=== PATIENT | male | born 1995 | race Caucasian/White ===

== ENCOUNTER 2018-04-09 20:11 | Inpatient (IN) | payer BC ==
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
[2018-04-09 22:08] LABS: #Basophils 0.1 thou/uL (0.0-0.2); #Eosinphils 0.1 thou/uL (0.0-0.7); #Lymphocytes 1.6 thou/uL (1.20-3.40); #Monocytes 0.9 thou/uL (0.11-0.59); #Neutrophils 7.5 thou/uL (1.40-6.50); %Basophils 1.1 % (0.0-1.0); %Eosinophils 0.5 % (0.0-10.0); %Lymphocytes 15.3 % (21.0-51.0); %Monocytes 9.3 % (0.0-10.0); %Neutrophils 73.7 % (42.0-75.0); Hemoglobin 14.7 g/dL (14.0-18.0); Mean Corpuscular HGB CONC 34.9 g/dL (32.0-36.0); Mean Corpuscular Hemoglobin 30.3 pg (27.0-31.0); Mean Corpuscular Volume 86.8 fL (78.0-98.0); Mean Platelet Volume 6.5 fL (7.4-10.4); Platelet Count 275 thou/uL (130-400); RBC Distribution Width 11.7 % (11.5-14.5); Red Blood Cell (RBC) Count 4.85 mill/uL (4.70-6.10); White Blood Cell (WBC) Count 10.1 thou/uL (4.8-10.8)
[2018-04-09 22:09] LABS: Prothrombin Time 13.5 SEC (12.0-14.7)
[2018-04-09 22:10] LABS: PTT 28.3 SEC (22.9-36.1)
[2018-04-09 22:18] LABS: ALT (SGPT) 35 U/L (8-55); AST (SGOT) 41 U/L (5-34); Albumin 4.6 g/dL (3.5-5.0); Alkaline Phosphatase 102 U/L (40-150); Anion Gap 14 mmol/L (10-20); BUN (Urea Nitrogen) 13 mg/dL (8.9-20.6); Bilirubin, Total 0.5 mg/dL (0.2-1.2); Calc. Creatinine Clearance 0 mL/min (70-130); Calcium 9.8 mg/dL (7.8-10.44); Carbon Dioxide 25 mmol/L (22-29); Chloride 107 mmol/L (98-107); Estimated GFR-MDRD 84; Globulin 2.9 g/dL (2.4-3.5); Glucose 92 mg/dL (70-105); Potassium 4.1 mmol/L (3.5-5.1); Protein, Total 7.5 g/dL (6.0-8.3); Sodium 142 mmol/L (136-145)
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
[2018-04-09] MEDS ORDERED: Ondansetron ODT 4 MG TAB PO PRN (23:18)
[2018-04-09] MEDS ORDERED: hydrALAZINE 20 MG/ML VIAL SLOW IVP PRN (23:18)
[2018-04-09] MEDS ORDERED: Dextrose 50% Abboject 50 ML SYRINGE SLOW IVP PRN (23:18)
[2018-04-09] MEDS ORDERED: Ondansetron PF 4 MG/2 ML Vial IVP PRN (23:18)
[2018-04-09] MEDS ORDERED: Dextrose 5% in Water 1,000 ML IV PRN (23:18)
[2018-04-09] MEDS ORDERED: traMADol HCl 50 MG TAB PO PRN ×2 (23:18)
[2018-04-09] MEDS ORDERED: Acetaminophen 500 MG TAB PO SCH (23:59)
[2018-04-10] MEDS ORDERED: Sodium Chloride 0.9% 1,000 ML IV SCH (00:15)
[2018-04-10] MEDS ORDERED: traMADol HCl 50 MG TAB ONE (00:28)
[2018-04-10 03:03] VITALS: BMI 23.5
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
[2018-04-10 05:59] LABS: #Basophils 0.1 thou/uL (0.0-0.2); #Eosinphils 0.1 thou/uL (0.0-0.7); #Lymphocytes 2.5 thou/uL (1.20-3.40); #Monocytes 1.2 thou/uL (0.11-0.59); #Neutrophils 5.6 thou/uL (1.40-6.50); %Basophils 0.8 % (0.0-1.0); %Eosinophils 1.1 % (0.0-10.0); %Lymphocytes 26.1 % (21.0-51.0); %Monocytes 12.9 % (0.0-10.0); %Neutrophils 59.1 % (42.0-75.0); Hemoglobin 13.5 g/dL (14.0-18.0); Mean Corpuscular Hemoglobin 31.1 pg (27.0-31.0); Mean Corpuscular Volume 91.3 fL (78.0-98.0); Mean Platelet Volume 6.6 fL (7.4-10.4); Platelet Count 266 thou/uL (130-400); RBC Distribution Width 11.9 % (11.5-14.5); Red Blood Cell (RBC) Count 4.36 mill/uL (4.70-6.10); White Blood Cell (WBC) Count 9.5 thou/uL (4.8-10.8)
[2018-04-10 06:16] LABS: Anion Gap 11 mmol/L (10-20); BUN (Urea Nitrogen) 12 mg/dL (8.9-20.6); Calc. Creatinine Clearance 131 mL/min (70-130); Calcium 9.4 mg/dL (7.8-10.44); Carbon Dioxide 24 mmol/L (22-29); Chloride 109 mmol/L (98-107); Estimated GFR-MDRD 90; Glucose 91 mg/dL (70-105); Potassium 3.8 mmol/L (3.5-5.1); Sodium 140 mmol/L (136-145)
[2018-04-10] MEDS ORDERED: Acetaminophen 500 MG TAB PO SCH (08:00)
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
[2018-04-10] MEDS ORDERED: Famotidine 20 MG TAB PO SCH (09:00)
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
[2018-04-10 12:50] VITALS: BP 139/74
[2018-04-10 12:55] VITALS: TEMP 97.8
== END 2018-04-10 12:58 | disposition home or self-care (01) | DRG 84 ==
LOC: SCSER 20:11 → CCU 04-10 00:50
PROVIDERS: ADMIT Neurological Surgery; ATTEND Neurological Surgery
DX: S06.5X9A Traumatic subdural hemorrhage with loss of consciousness of unspecified duration, initial encounter (principal); V29.3XXA Motorcycle rider (driver) (passenger) injured in unspecified nontraffic accident, initial encounter; Y92.488 Other paved roadways as the place of occurrence of the external cause; F90.9 Attention-deficit hyperactivity disorder, unspecified type; Z91.040 Latex allergy status
CPT/HCPCS: 36415; 70450; 72125; 80048; 80053; 85025; 85610; 85730; 90471; 90686; G0008